=== PATIENT | male | born 1970 | race Caucasian/White ===

== ENCOUNTER 2023-10-29 04:09 | Day surgery (SDC) | payer OTHER ==
[~2023-10-29] VITALS: Ht 180.3 cm; Wt 79.1 kg
[2023-10-29] VITALS (256 sets, daily range): BP systolic 74–165; BP diastolic 40–100
[2023-10-29] MEDS ORDERED: ALBUTEROL SULFATE 2.5 MG VIAL IN PRN (07:30)
[2023-10-29] MEDS ORDERED: CYANOCOBALAMIN 500 MCG/TAB ( B12) PO PRN (07:30)
[2023-10-29] MEDS ORDERED: diazePAM 5 MG/TAB PO PRN ×2 (07:30→08:30)
[2023-10-29] MEDS ORDERED: LACTATED RINGER'S 1,000 ML IV PRN ×3 (07:30→19:00)
[2023-10-29] MEDS ORDERED: cloNIDine HCL 0.1 MG/TAB PO PRN (07:30)
[2023-10-29] MEDS ORDERED: FAMOTIDINE 20 MG/TAB PO PRN (07:30)
[2023-10-29] MEDS ORDERED: SCOPOLAMINE 1.5 MG DIS TD PRN (07:30)
[2023-10-29] MEDS ORDERED: PANTOPRAZOLE SODIUM Sesquihydr 40 MG/TAB PO PRN (07:30)
[2023-10-29] MEDS ORDERED: ASCORBIC ACID 4,000 MG in SODIUM CHLORIDE 0.9% 1,000 ML IV SCH (08:00)
[2023-10-29 08:07] LABS: BASO% 0.5 % (0-3); EOS% 3.2 % (0-8); HEMATOCRIT 50.7 % (39.0-50.0); HEMOGLOBIN 16.5 g/dl (14.0-18.0); IMMATURE GRANULOCYTES 0.2 % (0.0-5.0); LYMPH% 19.7 % (15-41); MEAN CELL VOLUME 95.8 fL CALC (80.0-100.0); MEAN CORPUSCULAR HGB 31.2 pG CALC (26.0-32.0); MEAN CORPUSCULAR HGB CONC 32.5 g/dL CAL (32.0-36.0); MONO% 10.7 % (2-13); NEUT# 4.32 thou/uL (1.82-7.42); NEUT% 65.7 % (42-76); RED BLOOD COUNT 5.29 mill/uL (4.70-6.10); RED CELL DISTRI WIDTH 12.5 % (11.5-15.5)
[2023-10-29] MEDS ORDERED: HUMALOG100 UNIT/M SC (08:12)
[2023-10-29] MEDS ORDERED: LANTUS100 UNIT SC (08:13)
[2023-10-29] MEDS ORDERED: ACETAMINOPHEN 500 MG TAB PO SCH (08:30)
[2023-10-29 08:53] LABS: ALBUMIN 3.9 g/dL (3.2-5.0); ALKALINE PHOSPHATASE 46 u/l (38-126); ANION GAP 12 (6-22 (CALC)); BILIRUBIN, TOTAL 0.8 mg/dL (0.2-1.3); BUN 22 mg/dL (9-20); BUN/CREATININE RATIO 17 (12-20 (CALC)); CARBON DIOXIDE 22 mmol/l (22-30); CHLORIDE 107 mmol/l (95-108); CREATININE 1.3 mg/dL (0.7-1.3); GFR FOR AFR.AMER. > 60 ML/MIN (>=60 (CALC)); GFR OTHER RACES 57 ML/MIN (>=60 (CALC)); POTASSIUM 4.7 mmol/l (3.5-5.1); SGOT/AST 36 u/l (17-59); SODIUM 136 mmol/l (137-146); TOTAL PROTEIN 6.7 g/dL (6.3-8.2)
[2023-10-29] MEDS ORDERED: NALTREXONE HCL 50 MG/TAB VT PRN (09:35)
[2023-10-29] MEDS ORDERED: SUCCINYLCHOLINE CHLORIDE 20 MG/ML 10ML VIAL IV PRN (09:35)
[2023-10-29] MEDS ORDERED: THIAMINE HCL 100 MG/ML 2ML VIAL IV PRN (09:35)
[2023-10-29] MEDS ORDERED: LIDOCAINE HCL 1% (10MG/ML) 100 MG/10 ML MDV VT PRN ×2 (09:35)
[2023-10-29] MEDS ORDERED: cloNIDine HCL 0.1 MG/TAB VT PRN (09:35)
[2023-10-29] MEDS ORDERED: STERILE WATER FOR IRRIGATION 1,000 ML BTL IR PRN (09:35)
[2023-10-29] MEDS ORDERED: PROPOFOL 10 MG/ML 100ML VIAL IV PRN (09:35)
[2023-10-29] MEDS ORDERED: DEXAMETHASONE SOD. PHOSPHATE 10 MG/ML VIAL IV PRN (09:35)
[2023-10-29] MEDS ORDERED: MIDAZOLAM HCL 2 MG/2 ML VIAL IV PRN (09:35)
[2023-10-29] MEDS ORDERED: diazePAM 5 MG/TAB VT PRN (09:35)
[2023-10-29] MEDS ORDERED: OCTREOTIDE ACETATE 100 MCG/VIAL SDV SC PRN (09:35)
[2023-10-29] MEDS ORDERED: ROCURONIUM BROMIDE 10 MG/ML 5ML VIAL IV PRN (09:35)
[2023-10-29] MEDS ORDERED: PROPOFOL 100 ML IV PRN (09:35)
[2023-10-29] MEDS ORDERED: LIDOCAINE HCL 1% (10MG/ML) 100 MG/10 ML MDV IV PRN (09:35)
[2023-10-29] MEDS ORDERED: MAGNESIUM SULFATE HEPTAHYDRATE 100 ML IV PRN (09:35)
[2023-10-29] MEDS ORDERED: ONDANSETRON HCl 4 MG/2 ML SDV IV PRN ×3 (09:35→19:00)
[2023-10-29] MEDS ORDERED: cloNIDine HYDROCHLORIDE 100 MCG/ML 10 ML INJ IV PRN (09:35)
[2023-10-29] MEDS ORDERED: DiphenhydrAMINE HCL 50 MG/ML SDV IV PRN (09:35)
[2023-10-29] MEDS ORDERED: PHENYLEPHRINE HCL 10 MG/ML VIAL ONE (10:04)
[2023-10-29] MEDS ORDERED: SODIUM CHLORIDE 0.9% 250 ML IV ONE (10:04)
[2023-10-29] MEDS ORDERED: KLONOPIN2 MG PO (13:38)
[2023-10-29] MEDS ORDERED: CLONIDINE0.1 MG PO (13:38)
[2023-10-29] MEDS ORDERED: NALTREXONE50 MG PO (13:38)
[2023-10-29] MEDS ORDERED: KETOROLAC TROMETHAMINE 30 MG/ML SDV IV SCH (17:00)
[2023-10-29] MEDS ORDERED: ACETAMINOPHEN 1,000 MG/100 ML VIAL IV SCH (17:00)
[2023-10-29] MEDS ORDERED: LIDOCAINE HCL 1% (10MG/ML) 100 MG/10 ML MDV IV SCH (17:00)
[2023-10-29] MEDS ORDERED: DEXTROSE 250 ML IV PRN (17:40)
[2023-10-29] MEDS ORDERED: DEXTROSE 50% 50 ML/SYR IV PRN (17:40)
[2023-10-29] MEDS ORDERED: HALOPERIDOL LACTATE 5 MG/ML SDV IV PRN (19:00)
[2023-10-29] MEDS ORDERED: DEXAMETHASONE SODIUM PHOSPHATE PF 10 MG/ML SDV IV PRN (19:00)
[2023-10-29] MEDS ORDERED: PROMETHAZINE HCL 12.5 MG in SODIUM CHLORIDE 0.9% 50 ML IV PRN (19:00)
[2023-10-29] MEDS ORDERED: PROMETHAZINE HCL 25 MG in SODIUM CHLORIDE 0.9% 50 ML IV PRN (19:00)
[2023-10-29] MEDS ORDERED: ACETAMINOPHEN 1,000 MG/100 ML VIAL IV PRN (19:00)
[2023-10-29] MEDS ORDERED: KETOROLAC TROMETHAMINE 30 MG/ML SDV IV PRN (19:00)
[2023-10-29] MEDS ORDERED: ACETAMINOPHEN 500 MG TAB PO PRN (19:00)
[2023-10-29] MEDS ORDERED: PATIENT' OWN MED CONTROLLED 1 EA DOSE IV PRN (21:00)
[2023-10-29] MEDS ORDERED: diazePAM 10 MG/2 ML VIAL IV PRN (21:00)
[2023-10-29] MEDS ORDERED: INSULIN LISPRO 100 UNITS/ML ML SC SCH (21:00)
[2023-10-29] MEDS ORDERED: clonazePAM 1 MG/TAB PO SCH (23:00)
[2023-10-29] MEDS ORDERED: cloNIDine HCL 0.1 MG/TAB PO SCH (23:00)
[2023-10-30 03:22] VITALS: BP 163/81
[2023-10-30] MEDS ORDERED: clonazePAM 1 MG/TAB PO PRN ×2 (04:00→08:00)
[2023-10-30] MEDS ORDERED: cloNIDine HCL 0.1 MG/TAB PO PRN (04:00)
[2023-10-30 04:25] VITALS: BP 167/78
[2023-10-30 05:31] VITALS: BP 144/67
[2023-10-30 06:01] LABS: BASO% 0.1 % (0-3); HEMATOCRIT 50.1 % (39.0-50.0); HEMOGLOBIN 16.5 g/dl (14.0-18.0); IMMATURE GRANULOCYTES 0.3 % (0.0-5.0); LYMPH% 10.3 % (15-41); MEAN CELL VOLUME 95.4 fL CALC (80.0-100.0); MEAN CORPUSCULAR HGB 31.4 pG CALC (26.0-32.0); MEAN CORPUSCULAR HGB CONC 32.9 g/dL CAL (32.0-36.0); MONO% 5.5 % (2-13); NEUT# 7.19 thou/uL (1.82-7.42); NEUT% 83.8 % (42-76); RED BLOOD COUNT 5.25 mill/uL (4.70-6.10); RED CELL DISTRI WIDTH 12.3 % (11.5-15.5)
[2023-10-30 06:25] LABS: ALBUMIN 3.7 g/dL (3.2-5.0); BILIRUBIN, TOTAL 0.8 mg/dL (0.2-1.3); CREATININE 1.5 mg/dL (0.7-1.3); MAGNESIUM 2.2 mg/dL (1.6-2.3); POTASSIUM 4.7 mmol/l (3.5-5.1); TOTAL PROTEIN 6.4 g/dL (6.3-8.2)
[2023-10-30 07:45] VITALS: BP 144/67
[2023-10-30] MEDS ORDERED: ACETAMINOPHEN 325 MG/TAB PO SCH (08:00)
[2023-10-30] MEDS ORDERED: PANTOPRAZOLE SODIUM Sesquihydr 40 MG/TAB PO SCH (08:00)
[2023-10-30] MEDS ORDERED: NALTREXONE HCL 50 MG/TAB PO SCH (08:00)
[2023-10-30] MEDS ORDERED: cloNIDine HCL 0.1 MG/TAB PO SCH (08:00)
[2023-10-30] MEDS ORDERED: Cholecalciferol 2,000 UNIT/TAB PO PRN (09:00)
[2023-10-30] MEDS ORDERED: ACETAMINOPHEN 500 MG TAB PO PRN (09:00)
[2023-10-30] MEDS ORDERED: INSULIN DETEMIR 100 UNITS/ML SC SCH (09:00)
[2023-10-30] MEDS ORDERED: MAGNESIUM OXIDE 400 MG/TAB PO PRN (09:00)
== END 2023-10-30 16:18 | disposition home or self-care (01) | DRG 897 ==
LOC: ANR 04:09 → MS2 04:11 → ANR 09:00 → MS2 18:55 → ANR 10-30 16:18
PROVIDERS: ATTEND Anesthesiology Critical Care Medicine
DX: F11.20 Opioid dependence, uncomplicated (principal)
CPT/HCPCS: J0131; J2354; J3475